=== PATIENT | female | born 1990 ===

== ENCOUNTER 2019-11-12 02:20 | Emergency (ER) | payer SELFPAY ==
[2019-11-12] MEDS ORDERED: ONDANSETRON 4 MG/2 ML VIAL ONE (03:28)
[2019-11-12] MEDS ORDERED: HYDROMORPHONE HCL 0.5 MG/0.5 ML INJ ONE ×2 (03:28→04:21)
[2019-11-12 03:30] LABS: Absolute Lymphocytes (CBC) 3.9 K/uL (0.7-4.9); Basophils % 1.4 % (0-1.3); Hematocrit 37.5 % (36.0-45.0); Lymphocytes % 55.6 % (15.3-44.8); MPV 10.2 fL (7.6-11.3); RBC Red Blood Cell Count 4.11 M/uL (3.86-4.86)
[2019-11-12 03:42] LABS: ALT/SGPT 20 U/L (12-78); AST/SGOT 19 U/L (15-37); Albumin 3.7 g/dL (3.4-5.0); Alkaline Phosphatase 64 U/L (45-117); BUN Blood Urea Nitrogen 8 mg/dL (7-18); Bicarbonate 24 mmol/L (21-32); Bilirubin Direct < 0.1 mg/dL (0-0.2); Bilirubin Total 0.2 mg/dL (0.2-1.0); Glucose Level 96 mg/dL (74-106); Lipase 53 U/L (73-393); Potassium 3.3 mmol/L (3.5-5.1); Protein, Total 7.1 g/dL (6.4-8.2); Sodium Level 139 mmol/L (136-145)
[2019-11-12] MEDS ORDERED: NICOTINE 21 MG/PAT TD ONE (06:22)
[2019-11-12 08:09] VITALS: O2SAT 100
[2019-11-12 08:12] VITALS: BP 110/78
--- NOTE | 2019-11-12 09:37 | RAD REPORT ---
EXAM DESCRIPTION: CT - Abdomen Pelvis W Contrast - 11/12/2019 4:14 am CLINICAL HISTORY: The patient is 29 years old and is Female; ABD PAIN TECHNIQUE: Axial computed tomography images of the abdomen and pelvis with intravenous contrast. S agittal and coronal reformatted images were created and reviewed. This CT exam was performed using one or more of the following dose reduction techniques: automated exposure control, adjustment of t he mA and/or kV according to patient size, and/or use of iterative reconstruction technique. COMPARISON: No relevant prior studies available. FINDINGS: LUNG BASES: Unremarkable. No mass. No consolidation. ABDOMEN: LIVER: Unremarkable. No mass. GALLBLADDER AND BILE DUCTS: Sludge and gallstones are present within the gallbladder. There is n o gallbladder wall thickening or duct dilatation. PANCREAS: No ductal dilation. No mass. SPLEEN: Unremarkable. ADRENALS: Unremarkable. No mass. KIDNEYS AND URETERS: Unremarkable. The kidneys enhance symmetrically. No obstructing renal or ur eteral calculus is seen. No hydronephrosis or hydroureter. No perinephric fluid or stranding. STOMACH AND BOWEL: The stomach is distended with food contents. The small bowel is normal in sal iber. A moderate amount stool is present throughout the colon. There is no mucosal thickening or evid ence of bowel obstruction. Scattered colonic diverticula are noted without surrounding inflammation. PELVIS: APPENDIX: The appendix is normal in caliber without surrounding inflammation. BLADDER: Unremarkable. No mass. REPRODUCTIVE: A 2.2 cm left ovarian cyst is present. No follow-up imaging is recommended. A 1.8 cm right paraovarian cyst is present. No follow-up imaging is recommended. The uterus is unremarkable . ABDOMEN and PELVIS: INTRAPERITONEAL SPACE: Unremarkable. No free air. No significant fluid collection. BONES/JOINTS: No acute fracture. SOFT TISSUES: The soft tissues are normal. VASCULATURE: Unremarkable. No abdominal aortic aneurysm. LYMPH NODES: Unremarkable. No enlarged lymph nodes. IMPRESSION: 1. Cholelithiasis and sludge. If there is clinical concern for acute gallbladder patho logy, findings could be further evaluated with ultrasound or HIDA scan. 2. Colonic diverticulosis. Electronically signed by: Dasha Walker MD 11/12/2019 4:04 AM CDT Due to temporary technical issues with the PACS/Fluency reporting system, reports are being signed by the in house radiologist as a courtesy to ensure prompt reporting. The interpreting radiologist is f ully responsible for the content of the report.
--- NOTE | 2019-11-19 12:01 | EDPHYS ---
Physician Documentation [facility] Name: Cassy Mccall Age: 29 yrs Sex: Female : 1990 Arrival Date: 11/12/2019 Time: 02:22 Bed 8 Private MD: ED Physician Hermes Ashby HPI: 11/11 02:49 This 29 yrs old Female presents to ER via Wheelchair with complaints of Gallbladder ms3 Pain, Vomiting, Anxiety. 02:49 The patient presents to the emergency department with abdominal pain, of the right ms3 upper quadrant, described as achy, sharp, and does not radiate. Onset: The symptoms/episode began/occurred gradually, 2 day(s) ago. Possible causes: Family history of gallbladder disease. The symptoms are aggravated by nothing. The symptoms are alleviated by nothing. Associated signs and symptoms: The patient has no apparent associated signs or symptoms. Severity of symptoms: Pain is currently a 10 / 10. EXTERN: 02:49 LMP 11/05/2019 lp1 Historical: - Allergies: 02:49 No Known Allergies; lp1 - Home Meds: 02:49 None [Active]; lp1 - PMHx: 02:49 Depression; Hypothyroidism; lp1 - PSHx: 02:49 None; lp1 - Immunization history:: Adult Immunizations up to date. - Social history:: Smoking status: unknown. - Family history:: Mother has/had cholecystitis, Sister has/had cholecystitis. ROS: 02:49 Constitutional: Negative for fever, and chills. Eyes: Negative for injury, pain, ms3 redness, and discharge, Neck: Negative for injury, pain, and swelling, Cardiovascular: Negative for chest pain, and palpitations. Respiratory: Negative for shortness of breath, cough, wheezing, and pleuritic chest pain, Back: Negative for injury and pain, MS/Extremity: Negative for injury and deformity, Skin: Negative for injury, rash, and discoloration, Neuro: Negative for headache, weakness, numbness, tingling. Psych: Negative for depression, anxiety, suicide ideation, homicidal ideation, and hallucinations. 02:49 Abdomen/GI: Positive for abdominal pain, nausea and vomiting. Exam: 02:49 Constitutional: This is a well developed, well nourished patient who is awake, alert, ms3 and in no acute distress. Head/Face: Normocephalic, atraumatic. Eyes: Pupils equal round and reactive to light, extra-ocular motions intact. Lids and lashes normal. Conjunctiva and sclera are non-icteric and not injected. Cornea within normal limits. Periorbital areas with no swelling, redness, or edema. Neck: Trachea midline, no cervical lymphadenopathy. Supple, full range of motion without nuchal rigidity, or vertebral point tenderness. No Meningismus. Chest/axilla: Normal chest wall appearance and motion. Nontender with no deformity. Cardiovascular: Regular rate and rhythm with a normal S1 and S2. No gallops, murmurs, or rubs. Normal PMI, no JVD. No pulse deficits. Respiratory: Lungs have equal breath sounds bilaterally, clear to auscultation and percussion. No rales, rhonchi or wheezes noted. No increased work of breathing, no retractions or nasal flaring. Back: No spinal tenderness. No costovertebral tenderness. Full range of motion. MS/ Extremity: Pulses equal, no cyanosis. Neurovascular intact. Full, normal range of motion. Neuro: Awake and alert, GCS 15, oriented to person, place, time, and situation. Cranial nerves II-XII grossly intact. Motor strength 5/5 in all extremities. Sensory grossly intact. Cerebellar exam normal. Normal gait. Psych: Awake, alert, with orientation to person, place and time. Behavior, mood, and affect are within normal limits. 02:49 Abdomen/GI: Inspection: abdomen appears normal, Bowel sounds: normal, Palpation: moderate abdominal tenderness, in the right upper quadrant. Vital Signs: 02:46 BP 110 / 58; Pulse 80; Resp 18; Pulse Ox 99% on R/A; Weight 96.62 kg (R); Height 5 ft. lp1 7 in. (170.18 cm); Pain 10/10; 04:30 BP 109 / 76; Pulse 92; Resp 17 S; Pulse Ox 100% on R/A; jd3 05:54 Pulse 89; Resp 16 S; Pulse Ox 100% on R/A; jd3 06:54 BP 110 / 78; Pulse 88; Resp 16 S; Pulse Ox 100% on R/A; jd3 02:46 Body Mass Index 33.36 (96.62 kg, 170.18 cm) lp1 MDM: 02:46 Patient medically screened. ms3 02:52 Differential diagnosis: Nonspecific abd pain, gastritis, cholecystitis, pancreatitis. ms3 06:30 Data reviewed: vital signs, nurses notes, lab test result(s), radiologic studies, CT ms3 scan. 06:55 Transition of care: After a detail discussion of the patient's case, care is ms3 transferred to Steven Leon MD. 07:30 Counseling: I had a detailed discussion with the patient and/or guardian regarding: the rn historical points, exam findings, and any diagnostic results supporting the discharge/admit diagnosis, lab results, radiology results, the need for outpatient follow up, to return to the emergency department if symptoms worsen or persist or if there are any questions or concerns that arise at home. Response to treatment: the patient's symptoms have resolved after treatment, the patient's condition has returned to base line, the patient is now symptom free, Sleeping. ED course: Had long conversation with patient, had to wake her up, no abd tenderness on exam, neg shine, ambulated to bathroom and immediately became upset, accusing staff of not wanting to help her, demands IV get pulled out so she can smoke. She states she was seen at another hospital and was told gallstones without infection and they couldn't remove the gallbladder. She demands discharge and stormed out of ER to smoke. We called ultrasound out for better study, and she refuses to wait. She states she knows is going to show the same thing. Tried to get her to stay for study, she refuses. Return precautions given and understood. . 11/11 02:47 Order name: Basic Metabolic Panel; Complete Time: 04:11 ms3 11/11 02:47 Order name: CBC with Diff; Complete Time: 04:11 ms3 11/11 02:47 Order name: Hepatic Function; Complete Time: 04:11 ms3 11/11 02:47 Order name: Lipase; Complete Time: 04:11 ms3 11/11 03:32 Order name: CREATININE WHOLE BLOOD; Complete Time: 04:11 EDMS 11/11 02:47 Order name: IV Saline Lock; Complete Time: 03:14 ms3 11/11 02:49 Order name: CT Abd/Pelvis - IV Contrast Only ms3 11/11 02:47 Order name: Labs collected and sent; Complete Time: 03:14 ms3 Administered Medications: 03:25 Drug: Zofran (Ondansetron) 4 mg Route: IVP; Site: right antecubital; jd3 04:21 Follow up: Response: No adverse reaction jd3 03:25 Drug: Dilaudid 0.5 mg Route: IVP; Site: right antecubital; jd3 04:20 Follow up: Response: No adverse reaction; RASS: Restless (+1) jd3 03:33 CANCELLED (Physician Discretion): Dilaudid 0.5 mg IM once; RASS on ADMIN: Combtv4, Very jd3 Agttd3, Agttd2, Rstlss1, AlertClm0, Drwsy-1, Lt Sdtn-2, Mod Sdtn-3, Dp Sdtn-4, UnArsble-5 04:20 Drug: Dilaudid 0.5 mg Route: IVP; Site: right antecubital; jd3 05:20 Follow up: Response: No adverse reaction; RASS: Alert and Calm (0) jd3 06:30 Drug: Nicoderm CQ 21 mg/24 hr 1 patches Route: Transdermal; Site: affected area; jd3 Disposition: 11/12/19 07:34 Discharged to Home. Impression: Cholelithiasis. - Condition is Stable. - Discharge Instructions: Cholelithiasis. - Prescriptions for Zofran ODT 4 mg Oral tablet,disintegrating - place 1 tablet by TRANSLINGUAL route every 8 hours As needed; 20 tablet. - Medication Reconciliation Form, Thank You Letter, Antibiotic Education, Prescription Opioid Use form. - Follow up: Kirill Murphy MD; When: As needed; Reason: Recheck today's complaints, Re-evaluation by your physician. - Problem is an ongoing problem. - Symptoms have improved. Signatures: Dispatcher [employer] EDSteven Mendez MD MD rn Pena, Laura RN RN lp1 Nelly Galindo RN RN jl7 Jluis Telles RN RN jd3 Hermes Ashby DO DO ms3 Corrections: (The following items were deleted from the chart) 03:33 03:20 Dilaudid 0.5 mg IM once; RASS on ADMIN: Combtv4, Very Agttd3, Agttd2, Rstlss1, jd3 AlertClm0, Drwsy-1, Lt Sdtn-2, Mod Sdtn-3, Dp Sdtn-4, UnArsble-5 ordered. ms3 07:48 02:48 Abdomen Limited+US.RAD.BRZ ordered. EDMS EDMS 07:48 04:13 Abdomen Limited+US.RAD.BRZ ordered. EDMS EDMS 07:59 07:34 11/12/2019 07:34 Discharged to Home. Impression: Cholelithiasis. Condition is jl7 Stable. Forms are Medication Reconciliation Form, Thank You Letter, Antibiotic Education, Prescription Opioid Use. Follow up: Kirill Murphy; When: As needed; Reason: Recheck today's complaints, Re-evaluation by your physician. Problem is an ongoing problem. Symptoms have improved. rn
--- NOTE | 2019-11-19 12:01 | ER ---
Nurse's Notes [facility] Name: Cassy Mccall Age: 29 yrs Sex: Female : 1990 Arrival Date: 11/12/2019 Time: 02:22 Bed 8 Private MD: Diagnosis: Cholelithiasis Presentation: 11/11 02:46 Chief complaint: Patient states: "All of my family have had their gallbladders removed lp1 between the ages of 20-30 years old, I feel like that is what is happening"; Patient states severe epigastric pain x 2 hours; with vomiting. Coronavirus screen: Proceed with normal triage. Ebola Screen: No symptoms or risks identified at this time. Initial Sepsis Screen: Does the patient meet any 2 criteria? No. Patient's initial sepsis screen is negative. Does the patient have a suspected source of infection? No. Patient's initial sepsis screen is negative. Risk Assessment: Do you want to hurt yourself or someone else? Patient reports no desire to harm self or others. Onset of symptoms was November 12, 2019. 02:46 Method Of Arrival: Wheelchair lp1 02:46 Acuity: YU 3 lp1 Triage Assessment: 02:50 General: Appears uncomfortable, Behavior is anxious. Neuro: Reports numbness in right lp1 hand, left hand, right foot and left foot. RESEARCH PROGRAM COORDINATOR: 02:49 LMP 11/05/2019 lp1 Historical: - Allergies: 02:49 No Known Allergies; lp1 - Home Meds: 02:49 None [Active]; lp1 - PMHx: 02:49 Depression; Hypothyroidism; lp1 - PSHx: 02:49 None; lp1 - Immunization history:: Adult Immunizations up to date. - Social history:: Smoking status: unknown. - Family history:: Mother has/had cholecystitis, Sister has/had cholecystitis. Screenin:50 Abuse screen: Denies threats or abuse. Denies injuries from another. Nutritional lp1 screening: No deficits noted. Tuberculosis screening: No symptoms or risk factors identified. Fall Risk None identified. Assessment: 03:00 General: Appears uncomfortable, Behavior is calm, cooperative, appropriate for age. jd3 Pain: Complains of pain in right upper quadrant and right lower quadrant Quality of pain is described as sharp, stabbing, tender. Neuro: Level of Consciousness is awake, alert, obeys commands, Oriented to person, place, time, situation. Cardiovascular: Denies chest pain, Capillary refill < 3 seconds Patient's skin is warm and dry. Respiratory: Airway is patent Respiratory effort is even, unlabored, Respiratory pattern is regular, symmetrical, Denies cough, shortness of breath. GI: Abdomen is round non-distended, Abd is soft X 4 quads Abdomen is tender to palpation in right upper quadrant and right lower quadrant Reports lower abdominal pain, upper abdominal pain, nausea, vomiting, Patient currently denies constipation, diarrhea. : No signs and/or symptoms were reported regarding the genitourinary system. EENT: No signs and/or symptoms were reported regarding the EENT system. Derm: Skin is intact, Skin is dry, Skin is normal, Skin temperature is warm. Musculoskeletal: Circulation, motion, and sensation intact. Range of motion: intact in all extremities. 04:00 Reassessment: No changes from previously documented assessment. Patient and/or family jd3 updated on plan of care and expected duration. Pain level reassessed. Patient is alert, oriented x 3, equal unlabored respirations, skin warm/dry/pink. reporting returning pain. 04:30 Reassessment: Patient and/or family updated on plan of care and expected duration. Pain jd3 level reassessed. Patient is alert, oriented x 3, equal unlabored respirations, skin warm/dry/pink. Patient states feeling better. 05:54 Reassessment: Patient appears in no apparent distress at this time. Patient and/or jd3 family updated on plan of care and expected duration. Pain level reassessed. Patient is alert, oriented x 3, equal unlabored respirations, skin warm/dry/pink. Patient denies pain at this time. Patient states feeling better. 06:53 Reassessment: Patient appears in no apparent distress at this time. Patient and/or jd3 family updated on plan of care and expected duration. Pain level reassessed. Patient is alert, oriented x 3, equal unlabored respirations, skin warm/dry/pink. awaiting ultrasound Patient states feeling better. 07:45 Reassessment: Dr. Leon at bedside discussing results and POC. Pt tearful and verbally jl7 states understanding. Pt reports her mom is on the way to get her and request 2 apple juices with discharge. 2 apple juices given. Pt ambulated out of ER with steady gate. Vital Signs: 02:46 BP 110 / 58; Pulse 80; Resp 18; Pulse Ox 99% on R/A; Weight 96.62 kg (R); Height 5 ft. lp1 7 in. (170.18 cm); Pain 10/10; 04:30 BP 109 / 76; Pulse 92; Resp 17 S; Pulse Ox 100% on R/A; jd3 05:54 Pulse 89; Resp 16 S; Pulse Ox 100% on R/A; jd3 06:54 BP 110 / 78; Pulse 88; Resp 16 S; Pulse Ox 100% on R/A; jd3 02:46 Body Mass Index 33.36 (96.62 kg, 170.18 cm) lp1 ED Course: 02:22 Patient arrived in ED. bp1 02:36 Hermes Ashby DO is Attending Physician. ms3 02:48 Triage completed. lp1 02:48 Arm band placed on. lp1 02:55 Jluis Telles, RN is Primary Nurse. jd3 03:10 Inserted saline lock: 20 gauge in right antecubital area, using aseptic technique. ds4 Blood collected. 03:14 Lipase Sent. ds4 03:14 Hepatic Function Sent. ds4 03:14 CBC with Diff Sent. ds4 03:14 Basic Metabolic Panel Sent. ds4 03:52 CT Abd/Pelvis - IV Contrast Only In Process Unspecified. EDMS 04:21 Patient has correct armband on for positive identification. Bed in low position. Call jd3 light in reach. Side rails up X 1. Pulse ox on. NIBP on. 07:30 IV discontinued, intact, bleeding controlled, No redness/swelling at site. Pressure aa5 dressing applied, Pt requesting for IV to be d/c'd. 07:34 Kirill Murphy MD is Referral Physician. rn 07:45 No provider procedures requiring assistance completed. jl7 Administered Medications: 03:25 Drug: Zofran (Ondansetron) 4 mg Route: IVP; Site: right antecubital; jd3 04:21 Follow up: Response: No adverse reaction jd3 03:25 Drug: Dilaudid 0.5 mg Route: IVP; Site: right antecubital; jd3 04:20 Follow up: Response: No adverse reaction; RASS: Restless (+1) jd3 03:33 CANCELLED (Physician Discretion): Dilaudid 0.5 mg IM once; RASS on ADMIN: Combtv4, Very jd3 Agttd3, Agttd2, Rstlss1, AlertClm0, Drwsy-1, Lt Sdtn-2, Mod Sdtn-3, Dp Sdtn-4, UnArsble-5 04:20 Drug: Dilaudid 0.5 mg Route: IVP; Site: right antecubital; jd3 05:20 Follow up: Response: No adverse reaction; RASS: Alert and Calm (0) jd3 06:30 Drug: Nicoderm CQ 21 mg/24 hr 1 patches Route: Transdermal; Site: affected area; jd3 Outcome: 07:34 Discharge ordered by MD. rn 07:45 Discharged to home ambulatory, with family. jl7 07:45 Condition: stable 07:45 Discharge instructions given to patient, Instructed on discharge instructions, follow up and referral plans. medication usage, Demonstrated understanding of instructions, follow-up care, medications, Prescriptions given X 1. 07:59 Patient left the ED. jl7 Signatures: Dispatcher [employer] EDMS Steven Leon MD MD rn Calderon, Audri, RN RN aa5 Miryam Lao RN RN karin1 Yuri Rocha ds4 Nelly Galindo RN RN jl7 Jluis Telles RN RN jd3 Hermes Ashby DO DO ms3 Evette, Kristan bp1 Corrections: (The following items were deleted from the chart) 04:31 04:21 Reassessment: No changes from previously documented assessment. Patient and/or jd3 family updated on plan of care and expected duration. Pain level reassessed. Patient is alert, oriented x 3, equal unlabored respirations, skin warm/dry/pink. jd3
== END 2019-11-12 07:59 | disposition home or self-care (01) ==
LOC: ER 02:20
DX: K80.20 Calculus of gallbladder without cholecystitis without obstruction (principal)
CPT/HCPCS: 36415; 74177; 80048; 80076; 82565; 83690; 85025; 96374; 96375; 99284; J1170; J2405; Q9967